=== PATIENT | male | born 1935 | race Hispanic/Latino ===

== ENCOUNTER 2017-04-30 07:06 | Day surgery (SDC) | payer MEDICARE ==
[2017-04-30 07:40] VITALS: BMI 21.9
[2017-04-30] MEDS ORDERED: Lactated Ringer's 500 ML IV ONE (08:46)
--- NOTE | 2017-04-30 08:47 | CP.SDSHP ---
Same Day Surgery H & P - History Proposed Procedure: colonosocpy Pre-Op Diagnosis: change in bowels - Previous Medical/Surgical History Cardiac: Hypertension Endocrine/Metabolic: Diabetes - Allergies Allergies: Allergies Penicillins Allergy (Unverified 03/17/16 16:22) - Physical Exam Vital Signs: Vital Signs 04/30/17 07:51 Temperature 97.5 F L Pulse Rate 77 Respiratory 16 Rate Blood Pressure 143/57 L O2 Sat by Pulse 97 Oximetry Mental Status: Alert & Oriented x3 Neuro: WNL Heart: WNL Lungs: WNL GI: WNL - {Optional Preform as Required} Abdomen: WNL - Impression Impression: change in bowels Pt. Evaluated Today:Candidate for Anesthesia & Procedure: Yes - Date & Time Date: 04/30/17 Time: 08:30 Short Stay Discharge - Short Stay Discharge Admitting Diagnosis/Reason for Visit: CHANGE IN BOWEL HABITS Disposition: HOME/ ROUTINE
[2017-04-30] MEDS ORDERED: Lidocaine Hydrochloride 5 ML INJ ONE (09:05)
[2017-04-30] MEDS ORDERED: Propofol 10 mg/ml Inj (20 ML) ONE (09:05)
[2017-04-30 14:13] VITALS: TEMP 97
[2017-04-30 14:16] VITALS: PULSE 77; O2SAT 98
[2017-04-30 14:27] VITALS: BP 128/65; RESP 16
== END 2017-04-30 10:45 | disposition home or self-care (01) ==
LOC: C.ENDO 07:06
PROVIDERS: ATTEND Internal Medicine Gastroenterology
DX: D12.5 Benign neoplasm of sigmoid colon (principal); K57.90 Diverticulosis of intestine, part unspecified, without perforation or abscess without bleeding; K64.8 Other hemorrhoids; D12.3 Benign neoplasm of transverse colon
CPT/HCPCS: 45388; 88305; J2704; J7120

== ENCOUNTER 2018-04-08 08:19 | Day surgery (SDC) | payer MEDICARE, OTHER ==
[2018-04-05 12:12] VITALS: BMI 22.8
[2018-04-08] MEDS ORDERED: Ciprofloxacin 400mg/200ml D5W 400 MG/200 ML BAG IVPB ONE (09:01)
[2018-04-08] MEDS ORDERED: Iohexol 240 (50 ml) ONE (09:01)
[2018-04-08] MEDS ORDERED: Lidocaine 2% Jelly (Uro-Jet) ONE (09:02)
[2018-04-08] MEDS ORDERED: Propofol 10 mg/ml Inj (20 ML) ONE (09:45)
[2018-04-08] MEDS ORDERED: HYDROmorphone 0.5 mg/0.5 ml ISec IVP PRN (09:51)
[2018-04-08 11:37] VITALS: RESP 18
[2018-04-08 11:51] VITALS: BP 128/58; PULSE 73; TEMP 97.7; O2SAT 99
--- NOTE | 2018-04-08 21:29 | OP ---
PROCEDURE DATE: 04/08/2018 TIME: Roughly 10:20 p.m. PREOPERATIVE DIAGNOSIS: Possible urethral mass. POSTOPERATIVE DIAGNOSES: No urethral mass, very prominent large verumontanum and prostatic hypertrophy. PROCEDURE: Cystoscopy. SURGEON: Kole Holliday MD ANESTHESIA: Local anesthesia plus IV sedation. ANESTHESIA ADMINISTERED BY: Rubin Mason MD/Allyson, nurse gas distribution plant operator. DESCRIPTION OF PROCEDURE: Under adequate IV sedation, approximately 10 mL of 2% Xylocaine jelly was injected intraurethrally followed by insertion of a #22-Serbian direct cystoscope into the bladder under direct vision using a 30-degree lens. Sterile water was used as the irrigating solution throughout the entire procedure. The cystoscope was placed in the urethral meatus and advanced towards the prostatic fossa. There were no evidences of any anterior or proximal urethral masses. The proximal urethra appeared to be relatively normal. The posterior urethra and prostatic fossa showed normal external sphincter and a very large prominent verumontanum. The patient also had bilateral prostatic lobe hypertrophy with a total prostatic length of about 5 cm and a bladder neck to veru measurement was about 4 cm. The bladder neck showed a very small, possible beginning of a median lobe prostatic hypertrophy. The bladder was then examined in all four quadrants. There were no foreign bodies or suspicious lesion seen in the bladder. The bladder mucosa appeared to be about 2+ trabeculated. Both ureteral orifices were of normal location, normal configuration on the trigone with clear efflux bilaterally. At the end of the procedure, the bladder was emptied of all irrigating solution. The cystoscope was removed. The patient at most lost, maybe, 5 mL of blood loss and was brought to the recovery area in satisfactory condition. POSTOPERATIVE DIAGNOSTIC IMPRESSION: No evidence of any urethral mass or bladder malignancy. Positive benign prostatic hypertrophy with mostly lateral lobe prostatic hypertrophy. Kole Holliday MD MTDD
== END 2018-04-08 11:55 | disposition home or self-care (01) ==
LOC: C.SDS 08:19
PROVIDERS: ATTEND Urology
DX: D41.3 Neoplasm of uncertain behavior of urethra (principal); N40.0 Benign prostatic hyperplasia without lower urinary tract symptoms
CPT/HCPCS: 52000; J0744